=== PATIENT | male | born 1930 | race Caucasian/White ===

== ENCOUNTER 2016-09-05 15:29 | Emergency (ER) | payer OTHER ==
[2016-09-05 15:30] VITALS: BMI 33.3
[2016-09-05 15:56] VITALS: TEMP 97.9
[2016-09-05] MEDS ORDERED: SODIUM CHLORIDE 0.9% 10 ML FLUSH FLUSH PRN (16:00)
--- NOTE | 2016-09-05 16:07 | EDPRACDOC ---
- General Information Information Source: Patient Mode of Arrival: Ambulance - History of Present Illness Onset: TODAY HPI: Pt states he was dizzy and fell backwards this morning. C/o L chest and back pain, sob when lying flat. Denies LOC, vision changes, n/v, neck pain, sob, abd pain, loss of control bowel or bladder, wound, leg swelling. Chest Pain Location: Reports: Left Chest Pain Radiation: Reports: Back Symptoms Occur: Reports: Gradually Pain Came On: Reports: Suddenly Pain Status: Present Now Pain Description: Reports: Aching Pain Severity: Mild Pain Worsens With: Reports: Movement, Other (lying flat) Pain Improves With: Reports: Position (sitting up) Associated Signs and Symptoms: Reports: SOB <Ashley Lewis E - Last Filed: 09/05/16 19:24> <Emeli Soria - Last Filed: 09/05/16 20:32> - General Information Chief Complaint: Chest Pain Stated Complaint: CP Time Seen by Provider: 09/05/16 15:54 Home Medications: Home Medications Clopidogrel Bisulfate [Plavix] 75 mg PO DAILY 04/07/15 Cranberry 425 mg PO DAILY 07/27/15 Cyanocobalamin (Vitamin B-12) [Vitamin B12] 1,000 mcg PO DAILY 07/27/15 Albuterol Sulfate [Proventil Hfa] 2 puff INH QID PRN 11/08/15 Levothyroxine [Synthroid, Levoxyl] 25 mcg PO DAILY 06/23/16 Meclizine HCl [Antivert] 12.5 mg PO TID 06/23/16 Risperidone [Risperdal] 0.5 mg PO BID 06/23/16 Albuterol/Ipratropium Neb [Duoneb] 3 ml NEB Q6H PRN 09/05/16 Aspirin (Enteric Coated) [Ecotrin] 81 mg PO DAILY 09/05/16 Budesonide 0.5 mg NEB BID 09/05/16 Carbidopa/Levodopa [Sinemet 25/100] 1 tab PO BID 09/05/16 Cholecalciferol (Vitamin D3) [Vitamin D3] 2,000 unit PO DAILY 09/05/16 Donepezil HCl [Aricept] 10 mg PO QHS 09/05/16 Nitrofurantoin [Macrobid] 100 mg PO BID #14 cap 09/05/16 Phenytoin Sodium Extended [Dilantin] 400 mg PO QHS 09/05/16 Allergies/Adverse Reactions: Allergies Allergy/AdvReac Type Severity Reaction Status Date / Time No Known Allergies Allergy Verified 06/23/16 17:46 ED Past Medical History - History Reviewed Yes Nurses notes reviewed and agree except as marked - Patient Medical History Neurological History: Reports: Seizures Cardiac History: Reports: Hypertension Respiratory History: Reports: Asthma GI/ History: Reports: Kidney Stones Psychological History: Denies: Depression Systemic History: Denies: Cancer Additional Past Medical History: [place] Surgical History: Reports: Other (KIDNEY STONE REMOVAL) - Family Medical History Reports: Hypertension (BROTHER), Cancer (father- [place]), Stroke (MOTHER). Denies: Diabetes, Cardiac Disorders - Social Medical History Smoking Status: Never smoker ETOH: None Substance Abuse: None <Ashley Lewis - Last Filed: 09/05/16 19:24> EDM Review of Systems - Review of Systems Constitutional: No Symptoms Reported. negative: Fever, Chills, Weakness, Fatigue, Loss of Appetite Eyes: No Symptoms Reported. negative: Redness, Blurred Vision, Double Vision, Discharge, Pain, Light Sensitive, Photophobia Ears: No Symptoms Reported. negative: Pain, Hearing Loss, Drainage, Ear Pulling Throat: No Symptoms Reported. negative: Pain, Swelling Nose: No Symptoms Reported. negative: Abrasion, Bleeding, Congestion, Discharge , Deformity, Ecchymosis, Injection, Laceration, Swelling, Tender, Other Mouth: No Symptoms Reported. negative: Pain, Drooling Respiratory: Shortness of Breath Cardiovascular: Chest Pain Gastrointestinal: No Symptoms Reported. negative: Pain, Constipation, Nausea, Vomiting, Diarrhea, Melena, Formula Intolerance Genitourinary: No Symptoms Reported. negative: Dysuria, Hematuria, Frequency, Discharge, Bleeding, Testicular Pain, Neurological: Dizziness Musculoskeletal: Back. negative: No Symptoms Reported, Arm, Ankle, Chestwall, Elbow, Forearm, Femur, Foot, Hand, Hip, Knee, Leg, Neck, Pelvis, Ribs, Shoulder , Wrist Integumentary: No Symptoms Reported. negative: Itching, Rash, Bruising, Wound Allergic/Immunologic: No Symptoms Reported. negative: Hives, Itching Hematologic: No Symptoms Reported. negative: Lymphadenopathy, Easy Bruising, Easy Bleeding Psychiatric: No Symptoms Reported. negative: Anxiety, Depression, Hallucinations, Insomnia, Suicidal <Ashley Lewis - Last Filed: 09/05/16 19:24> - Physical Exam Constitutional: Alert Oriented to: Time, Person, Place Last recorded Vital Signs: Last Vital Signs Temp 97.9 F 09/05/16 15:44 Pulse 77 09/05/16 15:44 Resp 20 09/05/16 15:44 BP 102/52 L 09/05/16 15:44 Pulse Ox 92 09/05/16 15:44 Oxygen Pulse Oxygen Saturation 92 O2 Device Room Air Oxygen Flow Rate Fraction of Inspired Oxygen ( FIO2) - HEENT Head: Normal ( normocephalic) Eye Exam: Normal (PERRL, EOMI, Sclera white) Oropharynx: Normal (Pharynx:Moist without exudate,Gums-no swelling) Tympanic Membrane: Normal ENT EAC: Normal Nose: No Symptoms Reported (septum midline) Neck: Normal (FROM, trachea at midline) - Respiratory/Cardiovascular Respiratory: Normal - CTA (BBS clear to auscultation without adventitious sounds ) Cardiovascular: Normal (RRR without murmur, gallop or rub) - GI Auscultation: Normal (NABS) Palpation: Normal (Soft,No rebound or guarding, non distended) Tenderness: Non tender, Other (no luq or ruq tenderness) Muhammad's Sign: Negative - Musculoskeletal Back: Normal (Non-Tender) Extremities: Normal (Normal tone, Pulses 2+ No cyanosis or edema, FROM) - Integumentary Skin: Normal, Warm, Dry Lymphatics: Normal (no adenopathy) - Neurologic Memory Impaired: Normal Motor Function: Normal (Normal tone, Pulses 2+ No cyanosis or edema, FROM) Mood Description: Normal Perception: Normal <Ashley Lewis - Last Filed: 09/05/16 19:24> - Physical Exam Last recorded Vital Signs: Last Vital Signs Temp 97.9 F 09/05/16 15:44 Pulse 75 09/05/16 19:59 Resp 18 09/05/16 19:59 BP 159/74 09/05/16 19:59 Pulse Ox 94 09/05/16 19:59 Oxygen Pulse Oxygen Saturation 94 O2 Device Room Air Oxygen Flow Rate Fraction of Inspired Oxygen ( FIO2) <Emeli Soria - Last Filed: 09/05/16 20:32> ED Chest Pain Exam - Respiratory/Cardiovascular Respiratory: Normal - CTA (clear to auscultation without adventitious sounds) Cardiovascular/Chest: Normal (RRR without murmur, gallop or rub) Radial Pulse: Normal Edema: negative: 1+, 2+, 3+, 4+, 5, 6 Chest Palpation: Normal <Ashley Lewis - Last Filed: 09/05/16 19:24> - Differential Diagnosis Chest wall pain, Esophageal reflux/spasm, Gastritis, Myocardial infarction, Pneumonia, Pneumothorax, Other (rib fx) - Action ASA given in the ED: No - Results 09/05/16 17:01 09/05/16 17:01 09/05/16 19:07 Laboratory Results - last 24 hr 09/05/16 09/05/16 09/05/16 17:01 17:01 17:01 WBC 12.2 H RBC 4.73 Hgb 14.1 Hct 42.3 MCV 89 MCH 29.8 MCHC 33.4 RDW 14.4 Plt Count 234 MPV 7.7 Neut % (Auto) 76.0 Lymph % (Auto) 11.4 L [place] % (Auto) 9.7 Eos % (Auto) 2.2 Baso % (Auto) 0.7 Absolute Neuts (auto) 9.27 H Absolute Lymphs (auto) 1.34 PT 11.0 INR 1.1 APTT 22.4 Sodium 141 Potassium 3.9 Chloride 108 H Carbon Dioxide 21 L Anion Gap 16 BUN 28 H Creatinine 1.40 H Estimated GFR (MDRD) 48 L Glucose 124 H Calculated Osmolality 278 Calcium 8.4 Corrected Calcium 8.8 Total Bilirubin 0.4 AST 31 ALT 43 Alkaline Phosphatase 124 Troponin I < 0.01 Gbq-H-Vpovifgevtf Pept 243 Total Protein 6.7 Albumin 3.6 Urine Color Urine Clarity Urine pH Ur Specific [place] Urine Protein Urine Glucose (UA) Urine Ketones Urine Occult Blood Urine Nitrite Urine Bilirubin Urine Urobilinogen Ur Leukocyte Esterase Urine RBC Urine WBC Ur Epithelial Cells Calcium Oxalate Crystal Urine Bacteria Urine Mucus 09/05/16 18:40 WBC RBC Hgb Hct MCV MCH MCHC RDW Plt Count MPV Neut % (Auto) Lymph % (Auto) [place] % (Auto) Eos % (Auto) Baso % (Auto) Absolute Neuts (auto) Absolute Lymphs (auto) PT INR APTT Sodium Potassium Chloride Carbon Dioxide Anion Gap BUN Creatinine Estimated GFR (MDRD) Glucose Calculated Osmolality Calcium Corrected Calcium Total Bilirubin AST ALT Alkaline Phosphatase Troponin I Vxo-A-Tdzjqshnksx Pept Total Protein Albumin Urine Color Zhanna Urine Clarity Sl cldy Urine pH 5.0 Ur Specific [place] >/=1.035 Urine Protein 2+ H Urine Glucose (UA) Neg Urine Ketones 1+ H Urine Occult Blood Neg Urine Nitrite Neg Urine Bilirubin Neg Urine Urobilinogen 2 H Ur Leukocyte Esterase Trace H Urine RBC 10-20 H Urine WBC 30-40 H Ur Epithelial Cells Occ Calcium Oxalate Crystal 2+ Urine Bacteria 4+ H Urine Mucus Mod H - EKG EKG #1 EKG Time: 15:53 Rate: bpm: 75 [place]: Normal Rhythm: NSR Block: None ST: Nonsp (III) Comparison: 06/23/16 (no significant change) - Diagnostic Imaging Chest Image interpreted by: Radiologist IMPRESSION: 1. No rib fracture or rib lesion. 2. No acute cardiopulmonary disease. - Additional Information Final disposition of care given to Dr Soria at 1925 <Ashley Lewis - Last Filed: 09/05/16 19:24> - Results 09/05/16 17:01 09/05/16 17:01 WBC 12.2 xk/uL (3.8-10.8) H 09/05/16 17:01 RBC 4.73 xM/uL (4.70-6.10) 09/05/16 17:01 Hgb 14.1 g/dL (14.0-18.0) 09/05/16 17:01 Hct 42.3 % (42-52) 09/05/16 17:01 MCV 89 fL (80-94) 09/05/16 17:01 MCH 29.8 pg (27-32) 09/05/16 17:01 MCHC 33.4 g/dl (33-36) 09/05/16 17:01 RDW 14.4 % (11.5-14.5) 09/05/16 17:01 Plt Count 234 xk/uL (130-400) 09/05/16 17:01 MPV 7.7 fL (7.4-10.4) 09/05/16 17:01 Neut % (Auto) 76.0 % (45-76) 09/05/16 17:01 Lymph % (Auto) 11.4 % (17-44) L 09/05/16 17:01 [place] % (Auto) 9.7 % (3-10) 09/05/16 17:01 Eos % (Auto) 2.2 % (0-5) 09/05/16 17:01 Baso % (Auto) 0.7 % (0-2) 09/05/16 17:01 Absolute Neuts (auto) 9.27 xk/uL (1.7-8.2) H 09/05/16 17:01 Absolute Lymphs (auto) 1.34 xk/uL (0.65-4.75) 09/05/16 17: PT 11.0 SEC (9.2-11.2) 09/05/16 17: INR 1.1 09/05/16 17: APTT 22.4 SEC (22-35) 09/05/16 17:01 Sodium 141 mEq/L (137-146) 09/05/16 17:01 Potassium 3.9 mEq/L (3.5-5.1) 09/05/16 17: Chloride 108 mEq/L (98-107) H 09/05/16 17:01 Carbon Dioxide 21 mMOL/L (22-33) L 09/05/16 17:01 Anion Gap 16 mEq/L (8-16) 09/05/16 17:01 BUN 28 MG/DL (9-20) H 09/05/16 17:01 Creatinine 1.40 MG/DL (0.66-1.25) H 09/05/16 17:01 Estimated GFR (MDRD) 48 mL/min (>=60) L 09/05/16 17:01 Glucose 124 mg/dL (70-99) H 09/05/16 17:01 Calculated Osmolality 278 MOs/Kg (270-290) 09/05/16 17:01 Calcium 8.4 MG/DL (8.4-10.2) 09/05/16 17:01 Corrected Calcium 8.8 MG/DL (8.4-10.2) 09/05/16 17:01 Total Bilirubin 0.4 MG/DL (0.2-1.3) 09/05/16 17:01 AST 31 IU/L (17-59) 09/05/16 17: ALT 43 IU/L (21-72) 09/05/16 17:01 Alkaline Phosphatase 124 IU/L (50-160) 09/05/16 17:01 Troponin I < 0.01 ng/mL (<.04) 09/05/16 17:01 Ljn-N-Gjsyahdltzg Pept 243 pg/mL (0-1800) 09/05/16 17:01 Total Protein 6.7 G/DL (6.3-8.2) 09/05/16 17:01 Albumin 3.6 G/DL (3.5-5.0) 09/05/16 17:01 Urine Color Zhanna 09/05/16 18:40 Urine Clarity Sl cldy 09/05/16 18:40 Urine pH 5.0 (5.0-8.0) 09/05/16 18:40 Ur Specific [place] >/=1.035 (1.003-1.035) 09/05/16 18:40 Urine Protein 2+ (NEG/TRACE) H 09/05/16 18:40 Urine Glucose (UA) Neg (NEGATIVE) 09/05/16 18:40 Urine Ketones 1+ (NEGATIVE) H 09/05/16 18:40 Urine Occult Blood Neg (NEG/TRACE) 09/05/16 18:40 Urine Nitrite Neg (NEGATIVE) 09/05/16 18:40 Urine Bilirubin Neg (NEGATIVE) 09/05/16 18:40 Urine Urobilinogen 2 MG/DL (0-1) H 09/05/16 18:40 Ur Leukocyte Esterase Trace (NEGATIVE) H 09/05/16 18:40 Urine RBC 10-20 (0-2) H 09/05/16 18:40 Urine WBC 30-40 (0-2) H 09/05/16 18:40 Ur Epithelial Cells Occ 09/05/16 18:40 Calcium Oxalate Crystal 2+ 09/05/16 18:40 Urine Bacteria 4+ (NEG/FEW) H 09/05/16 18:40 Urine Mucus Mod (NEG/OCC) H 09/05/16 18:40 Lab Results 09/05/16 09/05/16 02 18:40 17:01 17:01 WBC 12.2 H RBC 4.73 Hgb 14.1 Hct 42.3 MCV 89 MCH 29.8 MCHC 33.4 RDW 14.4 Plt Count 234 MPV 7.7 Neut % (Auto) 76.0 Lymph % (Auto) 11.4 L [place] % (Auto) 9.7 Eos % (Auto) 2.2 Baso % (Auto) 0.7 Absolute Neuts (auto) 9.27 H Absolute Lymphs (auto) 1.34 PT 11.0 INR 1.1 APTT 22.4 Sodium Potassium Chloride Carbon Dioxide Anion Gap BUN Creatinine Estimated GFR (MDRD) Glucose Calculated Osmolality Calcium Corrected Calcium Total Bilirubin AST ALT Alkaline Phosphatase Troponin I Eev-D-Wsglpauidnb Pept Total Protein Albumin Urine Color Zhanna Urine Clarity Sl cldy Urine pH 5.0 Ur Specific [place] >/=1.035 Urine Protein 2+ H Urine Glucose (UA) Neg Urine Ketones 1+ H Urine Occult Blood Neg Urine Nitrite Neg Urine Bilirubin Neg Urine Urobilinogen 2 H Ur Leukocyte Esterase Trace H Urine RBC 10-20 H Urine WBC 30-40 H Ur Epithelial Cells Occ Calcium Oxalate Crystal 2+ Urine Bacteria 4+ H Urine Mucus Mod H 09/05/16 17:01 WBC RBC Hgb Hct MCV MCH MCHC RDW Plt Count MPV Neut % (Auto) Lymph % (Auto) [place] % (Auto) Eos % (Auto) Baso % (Auto) Absolute Neuts (auto) Absolute Lymphs (auto) PT INR APTT Sodium 141 Potassium 3.9 Chloride 108 H Carbon Dioxide 21 L Anion Gap 16 BUN 28 H Creatinine 1.40 H Estimated GFR (MDRD) 48 L Glucose 124 H Calculated Osmolality 278 Calcium 8.4 Corrected Calcium 8.8 Total Bilirubin 0.4 AST 31 ALT 43 Alkaline Phosphatase 124 Troponin I < 0.01 Ncv-T-Ulocsprjwuq Pept 243 Total Protein 6.7 Albumin 3.6 Urine Color Urine Clarity Urine pH Ur Specific [place] Urine Protein Urine Glucose (UA) Urine Ketones Urine Occult Blood Urine Nitrite Urine Bilirubin Urine Urobilinogen Ur Leukocyte Esterase Urine RBC Urine WBC Ur Epithelial Cells Calcium Oxalate Crystal Urine Bacteria Urine Mucus Laboratory Results - last 24 hr 09/05/16 09/05/16 09/05/16 17:01 17:01 17:01 WBC 12.2 H RBC 4.73 Hgb 14.1 Hct 42.3 MCV 89 MCH 29.8 MCHC 33.4 RDW 14.4 Plt Count 234 MPV 7.7 Neut % (Auto) 76.0 Lymph % (Auto) 11.4 L [place] % (Auto) 9.7 Eos % (Auto) 2.2 Baso % (Auto) 0.7 Absolute Neuts (auto) 9.27 H Absolute Lymphs (auto) 1.34 PT 11.0 INR 1.1 APTT 22.4 Sodium 141 Potassium 3.9 Chloride 108 H Carbon Dioxide 21 L Anion Gap 16 BUN 28 H Creatinine 1.40 H Estimated GFR (MDRD) 48 L Glucose 124 H Calculated Osmolality 278 Calcium 8.4 Corrected Calcium 8.8 Total Bilirubin 0.4 AST 31 ALT 43 Alkaline Phosphatase 124 Troponin I < 0.01 Tiy-P-Ugpelwvayox Pept 243 Total Protein 6.7 Albumin 3.6 Urine Color Urine Clarity Urine pH Ur Specific [place] Urine Protein Urine Glucose (UA) Urine Ketones Urine Occult Blood Urine Nitrite Urine Bilirubin Urine Urobilinogen Ur Leukocyte Esterase Urine RBC Urine WBC Ur Epithelial Cells Calcium Oxalate Crystal Urine Bacteria Urine Mucus 09/05/16 18:40 WBC RBC Hgb Hct MCV MCH MCHC RDW Plt Count MPV Neut % (Auto) Lymph % (Auto) [place] % (Auto) Eos % (Auto) Baso % (Auto) Absolute Neuts (auto) Absolute Lymphs (auto) PT INR APTT Sodium Potassium Chloride Carbon Dioxide Anion Gap BUN Creatinine Estimated GFR (MDRD) Glucose Calculated Osmolality Calcium Corrected Calcium Total Bilirubin AST ALT Alkaline Phosphatase Troponin I Eja-R-Onqjmwrerkf Pept Total Protein Albumin Urine Color Zhanna Urine Clarity Sl cldy Urine pH 5.0 Ur Specific [place] >/=1.035 Urine Protein 2+ H Urine Glucose (UA) Neg Urine Ketones 1+ H Urine Occult Blood Neg Urine Nitrite Neg Urine Bilirubin Neg Urine Urobilinogen 2 H Ur Leukocyte Esterase Trace H Urine RBC 10-20 H Urine WBC 30-40 H Ur Epithelial Cells Occ Calcium Oxalate Crystal 2+ Urine Bacteria 4+ H Urine Mucus Mod H Laboratory Results 09/05/16 17:01 09/05/16 17:01 - Diagnostic Imaging Head Image interpreted by: Radiologist Patient Name: PAT BIANCHI Courtesy Copy to: Diagnostic Imaging Report [facility] [address] [place] [address] [phone] Diagnostic Imaging Services Courtesy Copy to: Diagnostic Imaging Report Patient Name: PAT BIANCHI LOC: ED : 1930 AGE: 86 Order Date:09/05/16 Date of Service:01/14 Report # [id number] Ord Physician: Ashley Lewis Exam # [id number] Emergency Physician: Emeli Soria MD Exam(s): [id number] CT/CT HEAD W/O CM CLINICAL DATA: 86-year-old male with dizziness EXAM: CT HEAD WITHOUT CONTRAST TECHNIQUE: Contiguous axial images were obtained from the base of the skull through the vertex without intravenous contrast. COMPARISON: CT dated 06/23/2016 FINDINGS: There is slight prominence of the ventricles and sulci compatible with age-related volume loss. Mild periventricular and deep white matter hypodensities represent chronic microvascular ischemic changes. There is no intracranial hemorrhage. No mass effect or midline shift identified. The visualized paranasal sinuses and mastoid air cells are well aerated. The calvarium is intact. IMPRESSION: No acute intracranial hemorrhage. Mild age-related atrophy and chronic microvascular ischemic disease. If symptoms persist and there are no contraindications, MRI may provide better evaluation if clinically indicated Electronically Signed By: Ed Vickers M.D. On: 09/05/2016 19:35 Electronically Signed By: Ed Vickers MD Electronically Signed Date/Time: [id number] Dictate Date/Time: 09/05/161931 Technologist: Rivka Navarro Transcribed By: Mirian Transcribed Date/Time: 09/05/161934 <Emeli Soria - Last Filed: 09/05/16 20:32> - Departure Education/Counseling Given To: Patient Education/Counseling Given Regarding: Diagnosis, Treatment, Follow Up <Ashley Lewis - Last Filed: 09/05/16 19:24> - Departure Disposition: Home <Emeli Soria - Last Filed: 09/05/16 20:32> - Departure Condition: Good Final Diagnosis: Vertigo Contusion of rib on left side Qualifiers: Encounter type: initial encounter Qualified Code(s): S20.212A - Contusion of left front wall of thorax, initial encounter UTI (urinary tract infection) Qualifiers: Urinary tract infection type: acute cystitis Hematuria presence: with hematuria Qualified Code(s): N30.01 - Acute cystitis with hematuria Instructions: Chest Pain (ED), Urinary Tract Infection in Men (ED), Vertigo (ED ), Dysuria Referrals: [facility] [Primary Care Provider] - One Week Prescriptions: New Nitrofurantoin [Macrobid] 100 mg PO BID #14 cap No Action Clopidogrel Bisulfate [Plavix] 75 mg PO DAILY Cranberry 425 mg PO DAILY Cyanocobalamin (Vitamin B-12) [Vitamin B12] 1,000 mcg PO DAILY Albuterol Sulfate [Proventil Hfa] 2 puff INH QID PRN PRN Reason: SHOB/WHEEZE Levothyroxine [Synthroid, Levoxyl] 25 mcg PO DAILY Risperidone [Risperdal] 0.5 mg PO BID Meclizine HCl [Antivert] 12.5 mg PO TID Donepezil HCl [Aricept] 10 mg PO QHS Budesonide 0.5 mg NEB BID Aspirin (Enteric Coated) [Ecotrin] 81 mg PO DAILY Albuterol/Ipratropium Neb [Duoneb] 3 ml NEB Q6H PRN PRN Reason: BREATHING Cholecalciferol (Vitamin D3) [Vitamin D3] 2,000 unit PO DAILY Carbidopa/Levodopa [Sinemet 25/100] 1 tab PO BID Phenytoin Sodium Extended [Dilantin] 400 mg PO QHS Additional Instructions: Increase fluids.
--- NOTE | 2016-09-05 17:00 | DIRPT ---
CLINICAL DATA: Patient fell backwards this morning injuring his anterior chest EXAM: LEFT RIBS AND CHEST - 3+ VIEW COMPARISON: 06/23/2016 FINDINGS: No rib fracture or rib lesion. Clear lungs. No pleural effusion or pneumothorax. Cardiac silhouette is mildly enlarged. No mediastinal or hilar masses or convincing adenopathy. IMPRESSION: 1. No rib fracture or rib lesion. 2. No acute cardiopulmonary disease. Electronically Signed By: Abdullahi Caballero M.D. On: 09/05/2016 16:57
[2016-09-05 17:10] LABS: AUTOMATED BASOPHIL 0.7 % (0-2); AUTOMATED EOSINOPHIL 2.2 % (0-5); AUTOMATED LYMPH 11.4 % (17-44); AUTOMATED MONOCYTE 9.7 % (3-10); MPV 7.7 fL (7.4-10.4)
[2016-09-05 17:22] LABS: BLOOD UREA NITROGEN 28 MG/DL (9-20); CALC CORRECTED 8.8 MG/DL (8.4-10.2); CALCIUM 8.4 MG/DL (8.4-10.2); CALCULATED OSMOLALITY 278 MOs/Kg (270-290); CHLORIDE 108 mEq/L (98-107); GLUCOSE 124 mg/dL (70-99); SODIUM LEVEL 141 mEq/L (137-146); TOTAL PROTEIN 6.7 G/DL (6.3-8.2)
[2016-09-05 17:30] LABS: PARTIAL THROMB. TIME 22.4 SEC (22-35); PT-INR 1.1
[2016-09-05] MEDS ORDERED: ONDANSETRON HCL 4 MG/2 ML VIAL IV ONE (18:15)
[2016-09-05] MEDS ORDERED: MORPHINE 4 MG/ML INJECTION IV ONE (18:15)
[2016-09-05 18:57] LABS: CA OXALATE 2+; LEUKOCYTES/URINE TRACE (NEGATIVE); NITRITE/URINE NEG (NEGATIVE); URINE OCCULT BLOOD NEG (NEG/TRACE); WBC/URINE 30-40 (0-2)
--- NOTE | 2016-09-05 19:38 | DIRPT ---
CLINICAL DATA: 86-year-old male with dizziness EXAM: CT HEAD WITHOUT CONTRAST TECHNIQUE: Contiguous axial images were obtained from the base of the skull through the vertex without intravenous contrast. COMPARISON: CT dated 06/23/2016 FINDINGS: There is slight prominence of the ventricles and sulci compatible with age-related volume loss. Mild periventricular and deep white matter hypodensities represent chronic microvascular ischemic changes. There is no intracranial hemorrhage. No mass effect or midline shift identified. The visualized paranasal sinuses and mastoid air cells are well aerated. The calvarium is intact. IMPRESSION: No acute intracranial hemorrhage. Mild age-related atrophy and chronic microvascular ischemic disease. If symptoms persist and there are no contraindications, MRI may provide better evaluation if clinically indicated Electronically Signed By: Ed Vickers M.D. On: 09/05/2016 19:35
[2016-09-05 20:53] VITALS: BP 149/58; PULSE 76
== END 2016-09-05 20:52 | disposition home or self-care (01) ==
LOC: ED 15:29
DX: R42 Dizziness and giddiness (principal); S20.212A Contusion of left front wall of thorax, initial encounter; N30.01 Acute cystitis with hematuria; W19.XXXA Unspecified fall, initial encounter; Y93.9 Activity, unspecified
CPT/HCPCS: 36415; 70450; 71101; 80053; 81001; 83880; 84484; 85025; 85610; 85730; 93005; 96374; 96375; 99285; J2270; J2405